=== PATIENT | male | born 1995 | race American Indian/Alaskan Native ===

== ENCOUNTER → 2018-01-14 | Emergency (ER) | payer BC ==
[~2018-01-14] MED LIST: MOTRIN PO ONE
[2018-01-14 04:43] VITALS: BP 131/76
--- NOTE | 2018-01-14 06:01 | XRay Report ---
FINAL REPORT EXAM: XR FOOT 2V LT HISTORY: LT BIG TOE PAIN/L foot injury TECHNIQUE: AP and lateral views of the left foot were submitted. FINDINGS: There is no evidence of fracture or soft tissue injury. IMPRESSION: Normal exam.
--- NOTE | 2018-01-14 07:45 | Emergency Department Report ---
ED Lower Extremity HPI - General Chief Complaint: Extremity Injury, Lower Stated Complaint: LT GREAT TOE PAIN Time Seen by Provider: 01/14/18 07:18 Source: patient, science interpreter Mode of arrival: Carried (Peds) Limitations: No Limitations - History of Present Illness Initial Comments: Patient reports that he injured his left foot by dropping a box on it last night. He said the boxes over 100 pounds. Reports pain to his big toe is throbbing 7 out of 10 worse with movement better with rest. Denies any numbness or 2 went to toe. Pain is only located to his left toe and no radiation. No medication taken for pain. MD Complaint: foot injury (left great toe) -: During the night Injury: Toes: Left (left great toe pain and swelling after injury) Type of Injury: blunt Severity: severe Severity scale (0 -10): 7 Improves With: immobilization, rest Worsens With: weight bearing, movement, palpation Context: direct blow Associated Symptoms: swelling, ambulatory. denies: numbness, tingling, unable to bear weight, able to partially bear weight Treatments Prior to Arrival: other (none) - Related Data Previous Rx's Medication Instructions Recorded Last Taken Type Ibuprofen [Motrin] 600 mg PO Q8H PRN #15 tablet 01/14/18 Unknown Rx Allergies Allergy/AdvReac Type Severity Reaction Status Date / Time No Known Allergies Allergy Unverified 01/14/18 04:43 ED Review of Systems ROS: Stated complaint: LT GREAT TOE PAIN Other details as noted in HPI Comment: All other systems reviewed and negative Constitutional: denies: chills, fever Eyes: denies: eye pain, eye discharge, vision change Respiratory: denies: cough, shortness of breath, wheezing Cardiovascular: denies: chest pain, palpitations, edema, syncope Gastrointestinal: denies: nausea Musculoskeletal: joint swelling, arthralgia. denies: back pain Skin: denies: rash, lesions Neurological: denies: headache, weakness, numbness, paresthesias, abnormal gait , vertigo ED Past Medical Hx - Past Medical History Previous Medical History?: No - Surgical History Past Surgical History?: No - Family History Family history: no significant, hypertension - Social History Smoking Status: Never Smoker Substance Use Type: None Other Social History: Patient is single, works and lives with family - Medications Home Medications: Home Medications Medication Instructions Recorded Confirmed Last Taken Type Ibuprofen [Motrin] 600 mg PO Q8H PRN #15 tablet 01/14/18 Unknown Rx ED Physical Exam - General Limitations: No Limitations General appearance: alert, in no apparent distress - Head Head exam: Present: atraumatic, normocephalic, normal inspection - Eye Eye exam: Present: normal appearance, PERRL, EOMI - ENT ENT exam: Present: normal exam, mucous membranes moist - Neck Neck exam: Present: normal inspection, full ROM. Absent: tenderness, lymphadenopathy - Respiratory Respiratory exam: Present: normal lung sounds bilaterally. Absent: respiratory distress, chest wall tenderness - Cardiovascular Cardiovascular Exam: Present: regular rate, normal rhythm, normal heart sounds - GI/Abdominal GI/Abdominal exam: Present: soft, normal bowel sounds. Absent: tenderness - Extremities Exam Extremities exam: Present: normal inspection, full ROM (full range of motion to all extremities including left great toe but patient says is very painful to move the left great toe. ), tenderness (left great toe), normal capillary refill, joint swelling (left great toe), calf tenderness, other (clubbing, cyanosis or edema. Positive pulses all extremities and no neurovascular compromise). Absent: pedal edema - Expanded Lower Extremity Exam Left Hip exam: Present: normal inspection, full ROM, pelvic stability. Absent: tenderness, swelling, abrasion, laceration, ecchymosis, deformity, crepidus, dislocation, erythema, external rotation, internal rotation, shortening Upper Leg exam: Present: normal inspection, full ROM. Absent: tenderness, swelling, abrasion, laceration, ecchymosis, deformity, crepidus, dislocation, erythema Knee exam: Present: normal inspection, full ROM, full knee extension. Absent: tenderness, swelling, abrasion, laceration, ecchymosis, deformity, crepidus, dislocation, erythema, effusion, pain w/ pronation/supination, posterior draw sign, pain/laxity with valgus, pain/laxity with varus Lower Leg exam: Present: normal inspection, full ROM. Absent: tenderness, swelling, abrasion, laceration, ecchymosis, deformity, crepidus, dislocation, erythema, palpable cord, Brady's sign Ankle exam: Present: normal inspection, full ROM. Absent: tenderness, swelling , abrasion, laceration, ecchymosis, deformity, crepidus, dislocation, erythema, anterior draw sign Foot/Toe exam: Present: full ROM (pain with active range of motion), tenderness (tended to palpate left great toe), swelling (left great toe). Absent: normal inspection, abrasion, laceration, ecchymosis, deformity, crepidus, dislocation, erythema, amputation, puncture wound, foreign body, calcaneal tenderness, tenderness at base of 5th metatarsal, nail avulsion, subungual hematoma Neuro vascular tendon exam: Present: no vascular compromise, significant pain with passive ROM of distal joint. Absent: pulse deficit, abnormal cap refill, motor deficit, sensory deficit, tendon deficit, extremity cold to touch, pallor , abnormal 2-point discrimination, decreased fine/light touch, foot drop, peroneal nerve deficit Gait: Positive: observed and limited by pain - Back Exam Back exam: Present: normal inspection, full ROM, other (ambulates than any difficulties). Absent: tenderness, CVA tenderness (R), CVA tenderness (L), muscle spasm, paraspinal tenderness, vertebral tenderness, rash noted - Neurological Exam Neurological exam: Present: alert, oriented X3, normal gait, reflexes normal. Absent: motor sensory deficit - Psychiatric Psychiatric exam: Present: normal affect, normal mood - Skin Skin exam: Present: warm, dry, intact, normal color. Absent: rash ED Course Vital Signs 01/14/18 04:37 Temperature 98.6 F Pulse Rate 62 Respiratory 18 Rate Blood Pressure 131/76 O2 Sat by Pulse 100 Oximetry - Reevaluation(s) Reevaluation #1: 01/14/18 09:00 Patient given Motrin 800 mg. Emergency room for pain to left great toe and voiced relief of pain. See procedure note for splint in detail - Orthopedic Splinting/Casting Injury #1 Side: left Lower Extremity Injury Location: toe Lower Extremity Immobilizer: post-op shoe Additional Comments: Patient will good color, sensation, movement and temperature to left foot after shoe. ED Lower Extremity MDM - Radiology Data Radiology results: report reviewed X-ray of left foot 2 views reveal no evidence of fracture or soft tissue injury. No dislocation. - Medical Decision Making ED course: Patient here reports that he injured his left great toe after a box fell on the stove wane over 100 pound. Physical findings for swelling and tenderness to left great toe x-ray report revealed no acute fracture or dislocation. Patient was given Motrin 800 mg emergency room and forcibly for this pain. I discussed the patient is asked herself and he voiced understanding and I discussed that this diagnosis and treatment plan and he voiced understanding patient to follow up with orthopedic doctor and [facility] in 4 days. Postop shoe applied. Refer to procedure note for details. Patient discharged home with prescription for Motrin. - Differential Diagnosis fractured toe, toe sprain, arthralgia Critical care attestation.: If time is entered above; I have spent that time in minutes in the direct care of this critically ill patient, excluding procedure time. ED Disposition Clinical Impression: Arthralgia of toe of left foot Contusion of left great toe without damage to nail Qualifiers: Encounter type: initial encounter Qualified Code(s): S90.112A - Contusion of left great toe without damage to nail, initial encounter Injury of great toe of left foot Qualifiers: Encounter type: initial encounter Qualified Code(s): S99.922A - Unspecified injury of left foot, initial encounter Disposition: DC-01 TO HOME OR SELFCARE Is pt being admited?: No Does the pt Need Aspirin: No Condition: Stable Instructions: Foot Contusion (ED), Arthralgia (ED), RICE Therapy (ED) Additional Instructions: Please follow up with orthopedic doctor if he still continued to have pain and swelling in 4 days. C referral and discharge instruction paperwork Follow up with primary care physician and if he do not have a primary care physician follow-up with outside [facility] Wear postop shoe for at least 5 days See discharge instructions I's therapy Take Motrin as prescribed for pain and inflammation Prescriptions: Ibuprofen [Motrin] 600 mg PO Q8H PRN #15 tablet PRN Reason: Pain Referrals: PEDRO TOLEDO MD [Primary Care Provider] - 01/18/18 FABI LYONS MD [Staff Physician] - 01/18/18 [facility] [Outside] - 01/18/18 Forms: Work/School Release Form(ED)
== END | disposition home or self-care (01) ==
LOC: ED 04:18
DX: S90.112A Contusion of left great toe without damage to nail, initial encounter (principal); W20.8XXA Other cause of strike by thrown, projected or falling object, initial encounter; Y93.89 Activity, other specified; Y92.89 Other specified places as the place of occurrence of the external cause; Y99.8 Other external cause status
CPT/HCPCS: 99283